=== PATIENT | female | born 1995 | race Caucasian/White ===

== ENCOUNTER 2018-01-15 12:50 | Emergency (ER) | payer OTHER ==
[2018-01-15] MEDS ORDERED: ONDANSETRON 4 MG/2 ML VIAL ONE (13:11)
[2018-01-15] MEDS ORDERED: NS 1,000 ML IV ONE ×2 (13:20→14:32)
[2018-01-15] MEDS ORDERED: ONDANSETRON 4 MG/2 ML VIAL IVP ONE (13:20)
--- NOTE | 2018-01-15 13:33 | EDPHY ---
H & P Time Seen by Provider: 01/15/18 13:31 HPI/ROS: CHIEF COMPLAINT: Nausea vomiting HISTORY OF PRESENT ILLNESS: Presents with feeling lightheaded dizzy and nausea. Visiting from [place] at [place] 4000 [place] elevation and last night stayed in [place] at around 7000 ft. She woke up after midnight feeling upset stomach and then had multiple episodes of nausea and vomiting over an hour.. She has headache and chills and a little bit of diarrhea. Symptoms moderate, not better worse with travel to [place]. Not associated with ataxia or visual symptoms or other ENT symptoms or sore throat. REVIEW OF SYSTEMS: Eye: no change in vision ENT: no sore throat, did have some facial swelling earlier this morning Cardiac: no chest pain or syncope Pulmonary: no cough or SOB Abdomen: HPI, she did have diarrhea today. Musculoskeletal: no back pain Skin: no rash Neuro: HPI Constitutional: no fever : no urinary symptoms A comprehensive 10 point review of systems is otherwise negative aside from elements mentioned in the history of present illness. PAST MEDICAL HISTORY: Negative Social history: Visiting from [place], here with her mother General Appearance: Alert and conversant, cooperative. Eyes: No scleral icterus. Pupils equal and reactive. ENT, Mouth: Slightly dry mucous membranes. Normal tympanic membranes. Respiratory: Normal respiratory effort, breath sounds equal, lungs are clear to auscultation. Cardiovascular: Regular rate and rhythm. Gastrointestinal: Abdomen is soft and non tender. No McBurney's point tenderness. Neurological: Alert, face symmetric, normal motor and sensory in extremities. Skin: Warm and dry, no rashes. Musculoskeletal: No peripheral edema. Normal range of motion of the neck, no meningeal signs. Psychiatric: Not agitated. Emergency Department course/MDM: Patient had an IV started and was given 4 mg IV Zofran and 1 L normal saline IV. Discussed with patient and the mother that although altitude illness is a possibility I think it is less likely given her modest elevation where she slept last night, and presence of diarrhea. Mother asked about diamox, will hold off with AMS less likely and diuretic may cause worsening dehydration. Also possible viral gastroenteritis or food related. Headache more likely due to dehydration. 1438: Phenergan 12.5 mg IV, Toradol 15 mg IV, labs reviewed with patient and mother on the computer. 1605: Sleeping, awakens easily when I enter the room. Abdomen soft and nontender, taking oral fluids. Smoking Status: Never smoked Constitutional: Initial Vital Signs Temperature (C) 36.7 C 01/15/18 12:52 Heart Rate 97 01/15/18 12:52 Respiratory Rate 20 01/15/18 12:52 Blood Pressure 109/71 01/15/18 12:52 O2 Sat (%) 96 01/15/18 12:52 O2 Delivery Mode Room Air Allergies/Adverse Reactions: No Known Allergies Allergy (Unverified 01/15/18 12:52) Home Medications: Medication Instructions Recorded Ondansetron Odt [Zofran Odt] 4 mg PO Q4PRN #6 tab 01/15/18 Medical Decision Making Differential Diagnosis: Differential diagnosis considered for nausea and vomiting including but not limited to altitude illness, gastroenteritis, gastritis, appendicitis, and medication side effect. - Data Points Laboratory Results: Laboratory Results 01/15/18 13:20 01/15/18 13:20 01/15/18 01/15/18 01/15/18 13:20 13:20 13:20 WBC 7.86 10^3/uL 10^3/uL (3.80-9.50) RBC 5.12 10^6/uL 10^6/uL (4.18-5.33) Hgb 16.2 g/dL g/dL (12.6-16.3) Hct 47.1 % H % (38.0-47.0) MCV 92.0 fL fL (81.5-99.8) MCH 31.6 pg pg (27.9-34.1) MCHC 34.4 g/dL g/dL (32.4-36.7) RDW 12.4 % % (11.5-15.2) Plt Count 182 10^3/uL 10^3/uL (150-400) MPV 9.3 fL fL (8.7-11.7) Neut % (Auto) 83.0 % H % (39.3-74.2) Lymph % (Auto) 7.4 % L % (15.0-45.0) Coke % (Auto) 8.5 % % (4.5-13.0) Eos % (Auto) 0.3 % L % (0.6-7.6) Baso % (Auto) 0.4 % % (0.3-1.7) Nucleat RBC Rel Count 0.0 % % (0.0-0.2) Absolute Neuts (auto) 6.53 10^3/uL H 10^3/uL (1.70-6.50) Absolute Lymphs (auto) 0.58 10^3/uL L 10^3/uL (1.00-3.00) Absolute Monos (auto) 0.67 10^3/uL 10^3/uL (0.30-0.80) Absolute Eos (auto) 0.02 10^3/uL L 10^3/uL (0.03-0.40) Absolute Basos (auto) 0.03 10^3/uL 10^3/uL (0.02-0.10) Absolute Nucleated RBC 0.00 10^3/uL 10^3/uL (0-0.01) Immature Gran % 0.4 % % (0.0-1.1) Immature Gran # 0.03 10^3/uL 10^3/uL (0.00-0.10) Sodium 140 mEq/L mEq/L (135-145) Potassium 3.8 mEq/L mEq/L (3.5-5.2) Chloride 102 mEq/L mEq/L (97-110) Carbon Dioxide 28 mEq/l mEq/l (22-31) Anion Gap 10 mEq/L mEq/L (8-16) BUN 14 mg/dL mg/dL (7-23) Creatinine 0.6 mg/dL mg/dL (0.6-1.0) Estimated GFR > 60 Glucose 75 mg/dL mg/dL (70-100) Calcium 9.0 mg/dL mg/dL (8.5-10.4) Beta HCG, Qual NEGATIVE Medications Given: Discontinued Medications Sodium Chloride (Ns) 1,000 mls @ 0 mls/hr IV ONCE ONE PRN Reason: Wide Open Stop: 01/15/18 13:21 Last Admin: 01/15/18 13:22 Dose: 1,000 mls Sodium Chloride (Ns) 1,000 mls @ 0 mls/hr IV EDNOW ONE; Wide Open PRN Reason: Protocol Stop: 01/15/18 14:33 Last Admin: 01/15/18 14:37 Dose: 1,000 mls Ketorolac Tromethamine (Toradol) 15 mg IVP EDNOW ONE Stop: 01/15/18 14:33 Last Admin: 01/15/18 14:39 Dose: 15 mg Ondansetron HCl (Zofran) 4 mg IVP EDNOW ONE Stop: 01/15/18 13:21 Last Admin: 01/15/18 13:23 Dose: 4 mg Promethazine HCl (Phenergan) 12.5 mg IVP EDNOW ONE Stop: 01/15/18 14:33 Last Admin: 01/15/18 14:37 Dose: 12.5 mg Departure - Departure Disposition: Home, Routine, Self-Care Clinical Impression: Nausea & vomiting Qualifiers: Vomiting type: unspecified Vomiting Intractability: non-intractable Qualified Code(s): R11.2 - Nausea with vomiting, unspecified Condition: Good Instructions: Acute Nausea and Vomiting (ED) Referrals: NONE *PRIMARY CARE P,. [Primary Care Provider] - As per Instructions Nicolette Nava MD [[facility] [place] Primary Care Provider] - As per Instructions Prescriptions: Ondansetron Odt [Zofran Odt] 4 mg PO Q4PRN #6 tab
[2018-01-15 13:36] LABS: PLATELET COUNT 182 10^3/uL (150-400)
[2018-01-15] MEDS ORDERED: KETOROLAC 30 MG/1 ML SDV IVP ONE (14:32)
[2018-01-15] MEDS ORDERED: PROMETHAZINE HCL 25 MG/ML INJ IVP ONE (14:32)
[2018-01-15 17:09] VITALS: BP 93/62; PULSE 73; RESP 18; TEMP 98.2; O2SAT 97
== END 2018-01-15 17:07 | disposition home or self-care (01) ==
DX: R11.2 Nausea with vomiting, unspecified (principal); E86.9 Volume depletion, unspecified
CPT/HCPCS: 96374; J1885; J2405; J2550